=== PATIENT | male | born 1940 | race Caucasian/White ===

== ENCOUNTER 2016-10-06 07:51 | Emergency (ER) | payer MEDICARE, BC ==
[2016-10-06 09:02] LABS: CHLORIDE,CL 104 mmol/L (98-115); SODIUM,NA 141 mmol/L (136-145)
--- NOTE | 2016-10-06 19:09 | EDM.PDOC ---
ED HPI ALTERED MENTAL STATUS - General Chief Complaint: Neuro Symptoms/Deficits Stated Complaint: confusion Time Seen by Provider: 10/06/16 07:55 Source of Information: Reports: Family () History Limitations: Reports: Altered mental status - History of Present Illness INITIAL COMMENTS - FREE TEXT/NARRATIVE: A 76-year-old male presents to the emergency room with confusion and nonresponsiveness this a.m. EMS was dispatched this morning when patient's noticed her was not responsive and confused. He would open his eyes at times but would not communicate verbally. He was not ambulatory. She's not sure exactly at what time that this began. He does have multiple core morbidities which include prior heart disease, stroke, poorly controlled diabetes, DVTs, poor peripheral vascular disease. He was with a family yesterday and seemed to be doing well. He was able to do most of his care is independently living with his . Baseline Mental Status: Reports: alert/confused Symptom Onset Date: 10/06/16 Timing/Duration: Reports: Unsure Context: Reports: new/acute, recent infection (cellulitis of the left leg) - Related Data Allergies/ADRs: Allergies No Known Drug Allergies Allergy (Verified 10/06/16 08:49) Cannot Remember Past Medical History Cardiovascular History: Reports: CAD, High cholesterol, Hypertension, [place], Stents Musculoskeletal History: Reports: Arthritis Neurological History: Reports: CVA, TIA Endocrine/Metabolic History: Reports: Diabetes, type II Hematologic History: Reports: Anticoagulation therapy Immunologic History: Reports: None Social & Family History - Tobacco Use Smoking Status *Q: Current Status Unknown ED ROS GENERAL - Review of Systems Review Of Systems: Unable To Obtain - Physical Exam Exam: See Below Exam Limited By: Altered mental status General Appearance: obese Eye Exam: bilateral eye: PERRL Ears: normal external exam, normal TMs Nose: normal inspection, no blood Throat/Mouth: No airway compromise Head Exam: atraumatic, normocephalic Neck: normal inspection Respiratory/Chest: no respiratory distress Cardiovascular: regular rate, rhythm, no JVD GI/Abdominal: soft, non tender Neuro Exam (Abbreviated): confused, disoriented, unresponsive Back Exam: normal inspection Extremities: pedal edema, increased warmth (left lower extremity), redness ( left lower extremity), other (pronounced venous stasis changes with poor wound healing, cellulitis) Psychiatric: flat affect Skin Exam: Warm, Dry, Intact, Normal color EKG INTERPRETATION EKG Date: 10/06/16 Rhythm: NSR QRS: RBBB ST-T: depressed QT: normal Comparison: NA - no prior EKG EKG Interpretation Comments: Normal sinus rhythm Right bundle branch block Septal infarct age indeterminate Course - Vital Signs Last Recorded V/S: Last Vital Signs Temp 98.8 F 10/06/16 07:55 Pulse 98 10/06/16 08:50 Resp 18 10/06/16 08:50 BP 164/71 H 10/06/16 08:50 Pulse Ox 88 L 10/06/16 08:50 - Orders/Labs/Meds Orders: Active Orders 24 hr Category Date Time Status EKG Documentation Completion [RC] ASDIRECTED Care 10/06/16 08:06 Active Head wo Cont [CT] Stat Exams 10/06/16 08:04 Taken UA W/MICROSCOPIC [URIN] Stat Lab 10/06/16 08:04 Uncollected EKG 12 Lead [EK] Routine Ther 10/06/16 08:05 Ordered Labs: Laboratory Tests 10/06/16 10/06/16 10/06/16 Range/Units 07:57 08:25 08:25 WBC 6.7 (5.0-10.0) 10^3/uL RBC 4.33 L (4.50-6.00) 10^6/uL Hgb 13.1 (13.0-17.0) g/dL Hct 39.4 L (40.0-52.0) % MCV 90.9 (82.0-92.0) fL MCH 30.3 (27.0-31.0) pg MCHC 33.4 (32.0-36.0) g/dL RDW 12.9 (11.5-14.5) % Plt Count 247 (150-300) 10^3/uL MPV 6.8 L (7.4-10.4) fL Neut % (Auto) 83.2 H (50.0-70.0) % Lymph % (Auto) 7.8 L (20.0-40.0) % [place] % (Auto) 5.8 (2.0-8.0) % Eos % (Auto) 2.2 (1.0-3.0) % Baso % (Auto) 1.0 (0.0-1.0) % Neut # (Auto) 5.6 (2.5-7.0) 10^3/uL Lymph # (Auto) 0.5 L (1.0-4.0) 10^3/uL [place] # (Auto) 0.4 (0.1-0.8) 10^3/uL Eos # (Auto) 0.1 (0.1-0.3) 10^3/uL Baso # (Auto) 0.1 (0.0-0.1) 10^3/uL PT 18.1 H (8.9-11.4) SEC INR 1.7 H (0.9-1.1) APTT 34.6 H (20.8-31.2) SEC Sodium (136-145) mmol/L Potassium (3.3-5.3) mmol/L Chloride (98-115) mmol/L Carbon Dioxide (21.0-32.0) mmol/L BUN (6-25) mg/dL Creatinine (0.51-1.17) mg/dL Est Cr Clr Drug Dosing Estimated GFR (MDRD) mL/min Glucose (70-110) mg/dL POC Glucose 204 H (74-106) mg/dl Calcium (8.7-10.3) mg/dL Troponin I (0.00-0.070) ng/mL B-Natriuretic Peptide (0-100) pg/mL 10/06/16 Range/Units 08:25 WBC (5.0-10.0) 10^3/uL RBC (4.50-6.00) 10^6/uL Hgb (13.0-17.0) g/dL Hct (40.0-52.0) % MCV (82.0-92.0) fL MCH (27.0-31.0) pg MCHC (32.0-36.0) g/dL RDW (11.5-14.5) % Plt Count (150-300) 10^3/uL MPV (7.4-10.4) fL Neut % (Auto) (50.0-70.0) % Lymph % (Auto) (20.0-40.0) % [place] % (Auto) (2.0-8.0) % Eos % (Auto) (1.0-3.0) % Baso % (Auto) (0.0-1.0) % Neut # (Auto) (2.5-7.0) 10^3/uL Lymph # (Auto) (1.0-4.0) 10^3/uL [place] # (Auto) (0.1-0.8) 10^3/uL Eos # (Auto) (0.1-0.3) 10^3/uL Baso # (Auto) (0.0-0.1) 10^3/uL PT (8.9-11.4) SEC INR (0.9-1.1) APTT (20.8-31.2) SEC Sodium 141 (136-145) mmol/L Potassium 4.0 (3.3-5.3) mmol/L Chloride 104 (98-115) mmol/L Carbon Dioxide 26.3 (21.0-32.0) mmol/L BUN 22 (6-25) mg/dL Creatinine 1.07 (0.51-1.17) mg/dL Est Cr Clr Drug Dosing TNP Estimated GFR (MDRD) > 60 mL/min Glucose 201 H (70-110) mg/dL POC Glucose (74-106) mg/dl Calcium 8.6 L (8.7-10.3) mg/dL Troponin I 0.09 H* (0.00-0.070) ng/mL B-Natriuretic Peptide 56 (0-100) pg/mL - Radiology Interpretation Free Text/Narrative:: CT of the head without IV contrast Findings: An old inferior division of the right middle cerebral artery infarction is seen. No new infarction is identified Impression: No plain CT evidence of acute intracranial process - Re-Assessments/Exams Free Text/Narrative Re-Assessment/Exam: 10/06/16 19:33 Patient remains unresponsive with altered mental status changes unchanged. Departure - Departure Time of Disposition: 09:00 Disposition: DC/Tfer to Critical Access [facility] Condition: serious Clinical Impression: Confusion, Elevated troponin Altered mental status Qualifiers: Altered mental status type: unspecified Qualified Code(s): R41.82 - Altered mental status, unspecified Forms: ED Department Discharge - My Orders Last 24 Hours: My Active Orders 10/06/16 08:04 Head wo Cont [CT] Stat UA W/MICROSCOPIC [URIN] Stat 10/06/16 08:05 EKG 12 Lead [EK] Routine 10/06/16 08:06 EKG Documentation Completion [RC] ASDIRECTED - Assessment/Plan Last 24 Hours: My Active Orders 10/06/16 08:04 Head wo Cont [CT] Stat UA W/MICROSCOPIC [URIN] Stat 10/06/16 08:05 EKG 12 Lead [EK] Routine 10/06/16 08:06 EKG Documentation Completion [RC] ASDIRECTED Assessment:: Altered Mental status change Elevated troponin 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
== END 2016-10-06 09:00 ==
LOC: KA.ED 07:51
DX: R41.82 Altered mental status, unspecified (principal); R79.89 Other specified abnormal findings of blood chemistry; I25.10 Atherosclerotic heart disease of native coronary artery without angina pectoris; E78.00 Pure hypercholesterolemia, unspecified; I10 Essential (primary) hypertension; I25.2 Old myocardial infarction; E11.9 Type 2 diabetes mellitus without complications
CPT/HCPCS: 36415; 70450; 80048; 82962; 83880; 84484; 85025; 85610; 85730; 93005; 99285

== ENCOUNTER 2020-05-04 16:09 | Emergency (ER) | payer OTHER, MEDICARE, BC ==
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
--- NOTE | 2020-05-04 16:49 | CT ---
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
[2020-05-04 16:56] LABS: ANION GAP 13.3 mmol/L (5-15); CHLORIDE,CL 104 mmol/L (98-115); SODIUM,NA 141 mmol/L (136-145)
[2020-05-04 17:01] VITALS: BP 133/64; PULSE 63
== END 2020-05-04 17:38 ==
LOC: KA.ED 16:09
DX: R41.0 Disorientation, unspecified (principal); I25.10 Atherosclerotic heart disease of native coronary artery without angina pectoris; E78.00 Pure hypercholesterolemia, unspecified; I10 Essential (primary) hypertension; I25.2 Old myocardial infarction; M19.90 Unspecified osteoarthritis, unspecified site; E11.9 Type 2 diabetes mellitus without complications; Z79.84 Long term (current) use of oral hypoglycemic drugs; Z79.82 Long term (current) use of aspirin; Z79.01 Long term (current) use of anticoagulants; Z79.899 Other long term (current) drug therapy; Z95.5 Presence of coronary angioplasty implant and graft; Z86.73 Personal history of transient ischemic attack (TIA), and cerebral infarction without residual deficits
CPT/HCPCS: 70450; 80053; 84484; 85025; 85610; 99284; 99285-25

== ENCOUNTER 2020-05-09 10:21 | Inpatient (IN) | payer MEDICARE, BC ==
[2020-05-09] MEDS ORDERED: Warfarin 5 MG Tab PO SCH (18:00)
[2020-05-09] MEDS: Ferrous Sulfate 325 MG Tab PO SCH (18:18)
[2020-05-09] MEDS: metFORMIN 500 MG Tab PO SCH (18:18)
[2020-05-09] MEDS: atorvaSTATin 40 MG Tab PO SCH (20:37)
[2020-05-09] MEDS: levETIRAcetam 500 MG Tab PO SCH (20:37)
[2020-05-09] MEDS: Enoxaparin 100 MG/1 ML Syringe SUBCUT SCH (20:37)
[2020-05-10] MEDS: Lisinopril 5 MG Tab PO SCH (08:23)
[2020-05-10] MEDS: metFORMIN 500 MG Tab PO SCH ×2 (08:26→17:58)
[2020-05-10] MEDS: Aspirin 81 MG Tab.EC PO SCH (08:26)
[2020-05-10] MEDS: Calcium Citrate/Vitamin D3 315 MG-250 Unit Tab PO SCH (08:26)
[2020-05-10] MEDS: Multivitamins with Minerals/Iron/Folic Acid/Lycopene Tab PO SCH (08:26)
[2020-05-10] MEDS: Metoprolol Succinate 50 MG Tab.ER PO SCH (08:27)
[2020-05-10] MEDS: Citalopram 20 MG Tab PO SCH (08:27)
[2020-05-10] MEDS: Cyanocobalamin (Vitamin B12) 500 MCG Tab PO SCH (08:27)
[2020-05-10] MEDS: Ferrous Sulfate 325 MG Tab PO SCH ×2 (08:28→17:58)
[2020-05-10] MEDS: levETIRAcetam 500 MG Tab PO SCH ×2 (08:28→20:50)
[2020-05-10] MEDS: FENOFIBRATE MICRONIZED 134 MG PO SCH (08:29)
[2020-05-10] MEDS: Enoxaparin 100 MG/1 ML Syringe SUBCUT SCH ×2 (08:32→20:51)
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
[2020-05-10] MEDS: Ascorbic Acid 500 MG Tab PO SCH (17:58)
[2020-05-10] MEDS: Warfarin 5 MG Tab PO SCH (17:58)
[2020-05-10] MEDS: atorvaSTATin 40 MG Tab PO SCH (20:50)
[2020-05-11] MEDS: Cyanocobalamin (Vitamin B12) 500 MCG Tab PO SCH (08:29)
[2020-05-11] MEDS: levETIRAcetam 500 MG Tab PO SCH ×2 (08:29→21:13)
[2020-05-11] MEDS: Calcium Citrate/Vitamin D3 315 MG-250 Unit Tab PO SCH (08:29)
[2020-05-11] MEDS: Ferrous Sulfate 325 MG Tab PO SCH ×2 (08:29→17:44)
[2020-05-11] MEDS: FENOFIBRATE MICRONIZED 134 MG PO SCH (08:30)
[2020-05-11] MEDS: Citalopram 20 MG Tab PO SCH (08:30)
[2020-05-11] MEDS: Ascorbic Acid 500 MG Tab PO SCH ×2 (08:30→17:44)
[2020-05-11] MEDS: Metoprolol Succinate 50 MG Tab.ER PO SCH (08:30)
[2020-05-11] MEDS: Lisinopril 5 MG Tab PO SCH (08:30)
[2020-05-11] MEDS: Enoxaparin 100 MG/1 ML Syringe SUBCUT SCH ×2 (08:30→21:13)
[2020-05-11] MEDS: Aspirin 81 MG Tab.EC PO SCH (08:30)
[2020-05-11] MEDS: Multivitamins with Minerals/Iron/Folic Acid/Lycopene Tab PO SCH (08:30)
[2020-05-11] MEDS: metFORMIN 500 MG Tab PO SCH ×2 (08:32→17:44)
[2020-05-11 17:43] VITALS: PULSE 62
[2020-05-11] MEDS: Warfarin 5 MG Tab PO SCH (17:44)
[2020-05-11] MEDS: atorvaSTATin 40 MG Tab PO SCH (21:13)
[2020-05-12] MEDS: Cyanocobalamin (Vitamin B12) 500 MCG Tab PO SCH (08:09)
[2020-05-12] MEDS: metFORMIN 500 MG Tab PO SCH (08:10)
[2020-05-12] MEDS: Multivitamins with Minerals/Iron/Folic Acid/Lycopene Tab PO SCH (08:10)
[2020-05-12] MEDS: levETIRAcetam 500 MG Tab PO SCH (08:10)
[2020-05-12] MEDS: Citalopram 20 MG Tab PO SCH (08:10)
[2020-05-12] MEDS: Ferrous Sulfate 325 MG Tab PO SCH (08:10)
[2020-05-12] MEDS: Ascorbic Acid 500 MG Tab PO SCH (08:10)
[2020-05-12] MEDS: Calcium Citrate/Vitamin D3 315 MG-250 Unit Tab PO SCH (08:10)
[2020-05-12] MEDS: Aspirin 81 MG Tab.EC PO SCH (08:10)
[2020-05-12] MEDS: Lisinopril 5 MG Tab PO SCH (08:11)
[2020-05-12] MEDS: Metoprolol Succinate 50 MG Tab.ER PO SCH (08:11)
[2020-05-12] MEDS: Enoxaparin 100 MG/1 ML Syringe SUBCUT SCH (08:12)
[2020-05-12] MEDS: FENOFIBRATE MICRONIZED 134 MG PO SCH (08:27)
[2020-05-12 09:53] VITALS: BP 106/60
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
[2020-05-12] MEDS ORDERED: Warfarin 2 MG Tab PO SCH (18:00)
[2020-05-12] MEDS ORDERED: Warfarin 5 MG Tab PO SCH (18:00)
== END 2020-05-12 15:25 | disposition home or self-care (01) | DRG 101 ==
LOC: KA.MS 15:34
PROVIDERS: ADMIT Nurse Practitioner Family; ATTEND Nurse Practitioner Family
DX: G40.909 Epilepsy, unspecified, not intractable, without status epilepticus (principal); I82.409 Acute embolism and thrombosis of unspecified deep veins of unspecified lower extremity; R53.1 Weakness; E11.9 Type 2 diabetes mellitus without complications; D64.9 Anemia, unspecified; E78.5 Hyperlipidemia, unspecified; I10 Essential (primary) hypertension; Z20.828 Contact with and (suspected) exposure to other viral communicable diseases; F39 Unspecified mood [affective] disorder; H54.7 Unspecified visual loss; H91.90 Unspecified hearing loss, unspecified ear; M19.90 Unspecified osteoarthritis, unspecified site; E66.9 Obesity, unspecified; Z79.82 Long term (current) use of aspirin; Z79.899 Other long term (current) drug therapy; Z79.01 Long term (current) use of anticoagulants; Z79.84 Long term (current) use of oral hypoglycemic drugs; Z86.73 Personal history of transient ischemic attack (TIA), and cerebral infarction without residual deficits; Z68.29 Body mass index [BMI] 29.0-29.9, adult
CPT/HCPCS: 36416; 82962; 85610; 97110-GP; 97162-GP; A9270-GY; J1650

== ENCOUNTER 2021-02-20 17:55 | Inpatient (IN) | payer MEDICARE, BC ==
[2021-02-20] MEDS ORDERED: Sodium Chloride 0.9% 10 ML Syringe FLUSH PRN (18:13)
[2021-02-20] MEDS ORDERED: Sodium Chloride 0.9% 1,000 ML IV SCH ×2 (18:15→20:00)
--- NOTE | 2021-02-20 18:15 | EDM.PDOC ---
ED HPI GENERAL MEDICAL PROBLEM - General Chief Complaint: General Stated Complaint: GENERALIZED WEAKNESS Time Seen by Provider: 02/20/21 18:15 Source of Information: Reports: Patient, Family History Limitations: Reports: No Limitations - History of Present Illness INITIAL COMMENTS - FREE TEXT/NARRATIVE: 81 YO WM PRESENTS TO ER BY PRIVATE CAR WITH COMPLAINTS OF GENERALIZED WEAKNESS WITH POSSIBLE SEIZURE EARLIER TODAY. PT WITH HISTORY OF SEIZURES AND TAKING KEPPRA. PT REPORTS HE WAS ABLE TO AMBULATE WITH ASSISTANCE A SHORT DISTANCE TO EAT DINNER BUT AFTER HE WAS UNABLE TO STAND DUE TO WEAKNESS. PT REFUSED TO COME BY AMBULANCE INSTEAD COMING WITH FAMILY BY CAR. PT WAS A FULL ASSIST FROM CAR TO WHEELCHAIR AND WHEELCHAIR TO STRETCHER. PT WAS INCONTINENT OF BOTH URINE AND STO OL. PT DENIES FEVER/CHILLS, NO NAUSEA/VOMITING, NO CHEST PAIN OR SHORTNESS OF BREATH. PT DENIES SLURRED SPEECH, FACIAL DROOP OR HEADACHE/NECK PAIN. Onset: Unknown/Unsure Duration: Getting Worse Location: Reports: Generalized Severity: Moderate Improves with: Reports: Rest Worsens with: Reports: Movement Associated Symptoms: Reports: No Other Symptoms, Weakness - Related Data Allergies Allergy/AdvReac Type Severity Reaction Status Date / Time No Known Drug Allergies Allergy Cannot Verified 02/20/21 18:27 Remember Home Meds: Home Meds Ascorbate Calcium [Vitamin C] 500 mg PO BIDMEALS 05/04/20 [History] Aspirin [Halfprin] 81 mg PO DAILY 05/04/20 [History] Calcium Carbonate/Vitamin D3 [Calcium Carbonate/Vitamin D 600 MG-200 Unit] 1 tab PO DAILY 05/04/20 [History] Citalopram [Citalopram HBr] 20 mg PO DAILY 05/04/20 [History] Cyanocobalamin (Vitamin B-12) [Vitamin B-12] 1,000 mcg SL DAILY 05/04/20 [History] Fenofibrate,Micronized [Fenofibrate] 134 mg PO DAILY 05/04/20 [History] Ferrous Sulfate 325 mg PO BIDMEALS 05/04/20 [History] Metoprolol Succinate [Toprol XL 50mg] 50 mg PO DAILY 05/04/20 [History] Multivitamin 1 each PO DAILY 05/04/20 [History] atorvaSTATin [Lipitor] 20 mg PO BEDTIME 05/04/20 [History] lisinopriL [Prinivil] 5 mg PO DAILY 05/04/20 [History] metFORMIN [Glucophage] 500 mg PO BIDMEALS 05/04/20 [History] levETIRAcetam [Keppra] 1,000 mg PO BID 05/09/20 [History] Alendronate Sodium [Fosamax] 70 mg PO ASDIRECTED 02/20/21 [History] Phytonadione [Vitamin K] 100 mcg PO DAILY 02/20/21 [History] Warfarin [Coumadin] 5 mg PO DAILY@1800 02/20/21 [History] Past Medical History HEENT History: Reports: Hard of Hearing, Impaired Vision Cardiovascular History: Reports: Blood Clots/VTE/DVT, CAD, High Cholesterol, Hypertension, [place], Stents Musculoskeletal History: Reports: Arthritis Neurological History: Reports: CVA, Seizure, TIA Psychiatric History: Reports: Depression Endocrine/Metabolic History: Reports: Diabetes, Type II Hematologic History: Reports: Anemia, Anticoagulation Therapy, Iron Deficiency Immunologic History: Reports: None - Past Surgical History Head Surgeries/Procedures: Reports: None Cardiovascular Surgical History: Reports: Coronary Artery Bypass, Coronary Artery Stent Social & Family History - Family History Family Medical History: No Pertinent Family History - Caffeine Use Caffeine Use: Reports: Coffee ED ROS GENERAL - Review of Systems Review Of Systems: See Below Constitutional: Reports: Weakness HEENT: Reports: No Symptoms Respiratory: Reports: No Symptoms Cardiovascular: Reports: No Symptoms Endocrine: Reports: No Symptoms GI/Abdominal: Reports: No Symptoms : Reports: Incontinence Musculoskeletal: Reports: No Symptoms Skin: Reports: No Symptoms Neurological: Reports: Seizure, Difficulty Walking, Weakness, Gait Disturbance. Denies: Confusion, Dizziness, Headache, Numbness, Paresthesia, Syncope, Tingling, Tremors, Trouble Speaking, Change in Speech ED EXAM, GENERAL - Physical Exam Exam: See Below Exam Limited By: Physical Impairment General Appearance: Alert, WD/WN, No Apparent Distress Eye Exam: Bilateral Eye: EOMI, PERRL Throat/Mouth: Normal Inspection, Normal Lips, Normal Teeth, Normal Gums, Normal Oropharynx, Normal Voice, No Airway Compromise Head: Atraumatic, Normocephalic Neck: Normal Inspection, Supple, Non-Tender, Full Range of Motion Respiratory/Chest: No Respiratory Distress, Lungs Clear, Normal Breath Sounds, No Accessory Muscle Use, Chest Non-Tender Cardiovascular: Normal Peripheral Pulses, Regular Rate, Rhythm, No Edema, No Gallop, No JVD, No Rub GI/Abdominal: Normal Bowel Sounds, Soft, Non-Tender, No Organomegaly, No Distention, No Abnormal Bruit, No Mass Back Exam: Normal Inspection Extremities: Normal Range of Motion, Non-Tender, No Pedal Edema, Normal Capillary Refill Neurological: Alert, Oriented, CN II-XII Intact, Normal Cognition, Normal Reflexes, Abnormal Gait. No: Normal Gait Psychiatric: Normal Affect, Normal Mood Skin Exam: Warm, Dry, Intact, Normal Color, No Rash Lymphatic: No Adenopathy #1 Interpretation EKG Date: 02/20/21 Time: 18:37 Rhythm: NSR Rate (Beats/Min): 62 [place]: RAD-Right [place] Deviation P-Wave: Present QRS: Normal ST-T: Normal QT: Normal Comparison: NA - No Prior EKG Course - Vital Signs Last Recorded V/S: Last Vital Signs Temp 98.0 F 02/20/21 18:31 Pulse 64 02/20/21 19:49 Resp 20 02/20/21 19:49 BP 109/58 L 02/20/21 19:49 Pulse Ox 92 L 02/20/21 19:57 - Orders/Labs/Meds Orders: Active Orders 24 hr Category Date Time Status Patient Status Manage Transfer [TRANSFER] Routine ADT 02/20/21 19:50 Active Patient Status [ADT] Routine ADT 02/20/21 19:53 Active Cardiac Monitoring [RC] . DIRECTED Care 02/20/21 18:13 Active Oxygen Therapy [RC] PRN Care 02/20/21 19:53 Active Peripheral IV Care [RC] . DIRECTED Care 02/20/21 18:14 Active Up to Chair [RC] ASDIRECTED Care 02/20/21 19:53 Active VTE/DVT Education [RC] PER UNIT ROUTINE Care 02/20/21 19:53 Active Vital Signs [RC] Q4H Care 02/20/21 19:53 Active PT Evaluation and Treatment [CONS] Routine Cons 02/20/21 19:53 Active [place] [employer] Diet [DIET] Diet 02/20/21 Dinner Active A1C [GLYCOSYLATED HEMOGLOBIN,HGBA1C] [CHEM] AM Lab 02/21/21 05:11 Ordered CBC WITH AUTO DIFF [HEME] AM Lab 02/21/21 05:11 Ordered COMPREHENSIVE METABOLIC PN,CMP [CHEM] AM Lab 02/21/21 05:11 Ordered LACTIC ACID [CHEM] AM Lab 02/21/21 05:11 Ordered Sodium Chloride 0.9% [Normal Saline] 1,000 ml Med 02/20/21 18:15 Active IV ASDIRECTED Sodium Chloride 0.9% [Normal Saline] 1,000 ml Med 02/20/21 20:00 Active IV ASDIRECTED Sodium Chloride 0.9% [Saline Flush] Med 02/20/21 18:13 Active 10 ml FLUSH Q8HR PRN Peripheral IV Insertion Adult [OM.PC] Routine Oth 02/20/21 18:13 Ordered Resuscitation Status Routine Resus Stat 02/20/21 19:53 Ordered EKG 12 Lead [EK] Stat Ther 02/20/21 18:13 Ordered Medication Orders Sodium Chloride (Normal Saline) 1,000 mls @ 125 mls/hr IV ASDIRECTED OSIEL Last Admin: 02/20/21 18:35 Dose: 125 mls/hr Documented by: STEPHON Sodium Chloride (Normal Saline) 1,000 mls @ 100 mls/hr IV ASDIRECTED OSIEL Sodium Chloride (Sodium Chloride 0.9% 10 Ml Syringe) 10 ml FLUSH Q8HR PRN PRN Reason: keep vein open Last Admin: 02/20/21 18:36 Dose: 10 ml Documented by: STEPHON Labs: Laboratory Tests 02/20/21 02/20/21 02/20/21 Range/Units 18:13 18:13 18:13 WBC 5.90 (5.00-10.00) 10^3/uL RBC 4.64 (4.50-6.00) 10^6/uL Hgb 14.5 D (13.0-17.0) g/dL Hct 43.6 (40.0-52.0) % MCV 94.0 H (82.0-92.0) fL MCH 31.3 H (27.0-31.0) pg MCHC 33.3 (32.0-36.0) g/dL RDW 12.8 (11.5-14.5) % Plt Count 179 (150-400) 10^3/uL MPV 9.5 (7.4-10.4) fL Immature Gran % (Auto) 0.2 (0.0-5.0) % Neut % (Auto) 71.5 H (50.0-70.0) % Lymph % (Auto) 11.7 L (20.0-40.0) % [place] % (Auto) 10.0 H (2.0-8.0) % Eos % (Auto) 6.3 H (1.0-3.0) % Baso % (Auto) 0.3 (0.0-1.0) % Neut # (Auto) 4.22 (2.50-7.00) 10^3/uL Lymph # (Auto) 0.69 L (1.00-4.00) 10^3/uL [place] # (Auto) 0.59 (0.10-0.80) 10^3/uL Eos # (Auto) 0.37 H (0.10-0.30) 10^3/uL Baso # (Auto) 0.02 (0.00-0.10) 10^3/uL Immature Gran # (Auto) 0.01 (0.00-0.50) 10^3/uL PT 30.9 H D (9.2-11.2) SEC INR 3.1 H (0.9-1.1) APTT 41.0 H (22.8-31.4) SEC Sodium 140 (136-145) mmol/L Potassium 4.6 (3.5-5.1) mmol/L Chloride 103 (98-107) mmol/L Carbon Dioxide 26.8 (21.0-32.0) mmol/L Anion Gap 14.8 (5-15) mmol/L BUN 22 H (7-18) mg/dL Creatinine 1.20 H (0.51-1.17) mg/dL Est Cr Clr Drug Dosing 53.89 mL/min Estimated GFR (MDRD) 58 mL/min Glucose 147 H (70-140) mg/dL Lactic Acid (0.4-2.0) mmol/L Calcium 9.6 (8.7-10.3) mg/dL Total Bilirubin 0.3 (0.2-1.0) mg/dL AST 23 (15-37) U/L ALT 47 (14-63) U/L Alkaline Phosphatase 86 (46-116) U/L Total Protein 7.1 (6.4-8.2) g/dL Albumin 3.60 (3.40-5.00) g/dL Specimen Type Urine Color (YELLOW) Urine Appearance (CLEAR) Urine pH (5.0-9.0) Ur Specific [place] (1.005-1.030) Urine Protein (NEGATIVE) mg/dL Urine Glucose (UA) (NEGATIVE) mg/dL Urine Ketones (NEGATIVE) mg/dL Urine Occult Blood (NEGATIVE) Urine Nitrite (NEGATIVE) Urine Bilirubin (NEGATIVE) Urine Urobilinogen (0.2-1.0) E.U./dL Ur Leukocyte Esterase (NEGATIVE) Urine RBC (0-5) /HPF Urine WBC (0-5) /HPF Ur Epithelial Cells /LPF Urine Bacteria (NONE TO FEW) /HPF SARS CoV-2 RNA Rapid CARLOS A (NEGATIVE) 02/20/21 02/20/21 02/20/21 Range/Units 18:13 18:50 19:27 WBC (5.00-10.00) 10^3/uL RBC (4.50-6.00) 10^6/uL Hgb (13.0-17.0) g/dL Hct (40.0-52.0) % MCV (82.0-92.0) fL MCH (27.0-31.0) pg MCHC (32.0-36.0) g/dL RDW (11.5-14.5) % Plt Count (150-400) 10^3/uL MPV (7.4-10.4) fL Immature Gran % (Auto) (0.0-5.0) % Neut % (Auto) (50.0-70.0) % Lymph % (Auto) (20.0-40.0) % [place] % (Auto) (2.0-8.0) % Eos % (Auto) (1.0-3.0) % Baso % (Auto) (0.0-1.0) % Neut # (Auto) (2.50-7.00) 10^3/uL Lymph # (Auto) (1.00-4.00) 10^3/uL [place] # (Auto) (0.10-0.80) 10^3/uL Eos # (Auto) (0.10-0.30) 10^3/uL Baso # (Auto) (0.00-0.10) 10^3/uL Immature Gran # (Auto) (0.00-0.50) 10^3/uL PT (9.2-11.2) SEC INR (0.9-1.1) APTT (22.8-31.4) SEC Sodium (136-145) mmol/L Potassium (3.5-5.1) mmol/L Chloride (98-107) mmol/L Carbon Dioxide (21.0-32.0) mmol/L Anion Gap (5-15) mmol/L BUN (7-18) mg/dL Creatinine (0.51-1.17) mg/dL Est Cr Clr Drug Dosing mL/min Estimated GFR (MDRD) mL/min Glucose (70-140) mg/dL Lactic Acid 2.6 H (0.4-2.0) mmol/L Calcium (8.7-10.3) mg/dL Total Bilirubin (0.2-1.0) mg/dL AST (15-37) U/L ALT (14-63) U/L Alkaline Phosphatase (46-116) U/L Total Protein (6.4-8.2) g/dL Albumin (3.40-5.00) g/dL Specimen Type [place] Urine Color Yellow (YELLOW) Urine Appearance Clear (CLEAR) Urine pH 6.0 (5.0-9.0) Ur Specific [place] 1.025 (1.005-1.030) Urine Protein Trace H (NEGATIVE) mg/dL Urine Glucose (UA) 500 H (NEGATIVE) mg/dL Urine Ketones Negative (NEGATIVE) mg/dL Urine Occult Blood Negative (NEGATIVE) Urine Nitrite Negative (NEGATIVE) Urine Bilirubin Negative (NEGATIVE) Urine Urobilinogen 0.2 (0.2-1.0) E.U./dL Ur Leukocyte Esterase Negative (NEGATIVE) Urine RBC 0-5 (0-5) /HPF Urine WBC Not seen (0-5) /HPF Ur Epithelial Cells Occasional /LPF Urine Bacteria Not seen (NONE TO FEW) /HPF SARS CoV-2 RNA Rapid CARLOS A Negative (NEGATIVE) Meds: Medications Generic Name Dose Route Start Last Admin Trade Name Freq PRN Reason Stop Dose Admin Sodium Chloride 1,000 mls @ 125 mls/hr 02/20/21 18:15 02/20/21 18:35 Normal Saline IV 125 mls/hr ASDIRECTED OSIEL Administration Sodium Chloride 1,000 mls @ 100 mls/hr 02/20/21 20:00 Normal Saline IV ASDIRECTED [facility] Sodium Chloride 10 ml 02/20/21 18:13 02/20/21 18:36 Sodium Chloride 0.9% 10 Ml Syringe FLUSH 10 ml Q8HR PRN Administration keep vein open - Radiology Interpretation Free Text/Narrative:: CXR-NAD CT HEAD- NAD Departure - Departure Time of Disposition: 20:01 Disposition: Admitted As Inpatient 67 Condition: Poor Clinical Impression: Generalized weakness, Physical deconditioning, Dehydration - Discharge Information Referrals: Quintin Yanez MD [Primary Care Provider] - Forms: ED Department Discharge Sepsis Event Note (ED) - Focused Exam Vital Signs: Vital Signs Temp Pulse Resp BP Pulse Ox Pulse Ox 02/20/21 19:57 92 L 02/20/21 19:49 64 20 109/58 L 96 02/20/21 19:28 58 L 18 121/59 L 93 L 02/20/21 18:41 63 20 129/66 92 L 02/20/21 18:31 98.0 F 64 16 129/65 93 L - My Orders Last 24 Hours: My Active Orders 02/20/21 Dinner [place] [employer] Diet [DIET] 02/20/21 18:13 Cardiac Monitoring [RC] . DIRECTED Sodium Chloride 0.9% [Saline Flush] 10 ml FLUSH Q8HR PRN Peripheral IV Insertion Adult [OM.PC] Routine EKG 12 Lead [EK] Stat 02/20/21 18:14 Peripheral IV Care [RC] . DIRECTED 02/20/21 18:15 Sodium Chloride 0.9% [Normal Saline] 1,000 ml IV ASDIRECTED 02/20/21 19:50 Patient Status Manage Transfer [TRANSFER] Routine 02/20/21 19:53 Patient Status [ADT] Routine Oxygen Therapy [RC] PRN Up to Chair [RC] ASDIRECTED VTE/DVT Education [RC] PER UNIT ROUTINE Vital Signs [RC] Q4H PT Evaluation and Treatment [CONS] Routine Resuscitation Status Routine 02/20/21 20:00 Sodium Chloride 0.9% [Normal Saline] 1,000 ml IV ASDIRECTED 02/21/21 05:11 A1C [GLYCOSYLATED HEMOGLOBIN,HGBA1C] [CHEM] AM CBC WITH AUTO DIFF [HEME] AM COMPREHENSIVE METABOLIC PN,CMP [CHEM] AM LACTIC ACID [CHEM] AM - Assessment/Plan Last 24 Hours: My Active Orders 02/20/21 Dinner [place] [employer] Diet [DIET] 02/20/21 18:13 Cardiac Monitoring [RC] . DIRECTED Sodium Chloride 0.9% [Saline Flush] 10 ml FLUSH Q8HR PRN Peripheral IV Insertion Adult [OM.PC] Routine EKG 12 Lead [EK] Stat 02/20/21 18:14 Peripheral IV Care [RC] . DIRECTED 02/20/21 18:15 Sodium Chloride 0.9% [Normal Saline] 1,000 ml IV ASDIRECTED 02/20/21 19:50 Patient Status Manage Transfer [TRANSFER] Routine 02/20/21 19:53 Patient Status [ADT] Routine Oxygen Therapy [RC] PRN Up to Chair [RC] ASDIRECTED VTE/DVT Education [RC] PER UNIT ROUTINE Vital Signs [RC] Q4H PT Evaluation and Treatment [CONS] Routine Resuscitation Status Routine 02/20/21 20:00 Sodium Chloride 0.9% [Normal Saline] 1,000 ml IV ASDIRECTED 02/21/21 05:11 A1C [GLYCOSYLATED HEMOGLOBIN,HGBA1C] [CHEM] AM CBC WITH AUTO DIFF [HEME] AM COMPREHENSIVE METABOLIC PN,CMP [CHEM] AM LACTIC ACID [CHEM] AM Assessment:: 1. SEVERE DECONDITIONING 2. POSSIBLE SEIZURE-RESOLVED EARLIER TODAY 3. DEHYDRATION 4. GENERALIZED WEAKNESS Plan: 1. ADMIT TO MEDICINE-DR ESTRADA YANEZ-ACCEPTED AT 1999 (ALL ADMISSSION ORDERS PER DR ESTRADA YANEZ) 2. NORMAL SALINE @100CC/HR 3. PHYSICAL THERAPY TO EVALUATE AND TREAT 4. CBC/CMP/LACTIC ACID/HGBA1C IN AM 5. SUPPORTIVE CARE
--- NOTE | 2021-02-20 18:53 | CT ---
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 There is no hyperdense middle cerebral artery sign. IMPRESSION: NO CHANGE SINCE LAST EXAM Raúl Caballero MD 02/20/21 0236 Thank you for allowing us to participate in the care of your patient.
--- NOTE | 2021-02-20 18:57 | CR ---
[id number] RAD/RAD Chest PA or AP 1V EXAM: SINGLE VIEW CHEST. INDICATION: WEAKNESS COMPARISON: CORRELATION IS MADE WITH MARCH 12, 2008 FINDINGS: The lungs are clear. 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
[2021-02-20 19:14] LABS: ANION GAP 14.8 mmol/L (5-15)
[2021-02-20] MEDS ORDERED: Non-Formulary Medication 1 Each (Alendronate Sodium [Fosamax] 70 MG Tablet) PO SCH (21:00)
[2021-02-20] MEDS ORDERED: atorvaSTATin 40 MG Tab PO SCH (21:00)
[2021-02-20] MEDS: levETIRAcetam 500 MG Tab PO SCH (21:57)
[2021-02-21] MEDS ORDERED: Ferrous Sulfate 325 MG Tab PO SCH (08:00)
[2021-02-21] MEDS ORDERED: metFORMIN 500 MG Tab PO SCH (08:00)
[2021-02-21] MEDS ORDERED: Ascorbic Acid 500 MG Tab PO SCH (08:00)
[2021-02-21] MEDS: levETIRAcetam 500 MG Tab PO SCH (08:14)
[2021-02-21 08:32] LABS: ANION GAP 12.4 mmol/L (5-15); CHLORIDE,CL 105 mmol/L (98-107); SODIUM,NA 141 mmol/L (136-145)
[2021-02-21 08:44] LABS: HEMOGLOBIN A1C 8.4 % (4.3-5.7)
[2021-02-21] MEDS ORDERED: Calcium Citrate/Vitamin D3 315 MG-250 Unit Tab PO SCH (09:00)
[2021-02-21] MEDS ORDERED: Metoprolol Succinate 50 MG Tab.ER PO SCH (09:00)
[2021-02-21] MEDS ORDERED: Aspirin 81 MG Tab.EC PO SCH (09:00)
[2021-02-21] MEDS ORDERED: Non-Formulary Medication 1 Each (Fenofibrate,Micronized [Fenofibrate] 134 MG Cap) PO SCH (09:00)
[2021-02-21] MEDS ORDERED: Citalopram 20 MG Tab PO SCH (09:00)
[2021-02-21] MEDS ORDERED: Cyanocobalamin (Vitamin B12) 500 MCG Tab PO SCH (09:00)
[2021-02-21] MEDS ORDERED: Phytonadione 100 MCG Tab PO SCH (09:00)
[2021-02-21] MEDS ORDERED: CALCIUM CARBONATE PO SCH (09:00)
[2021-02-21] MEDS ORDERED: VITAMIN D3 PO SCH (09:00)
[2021-02-21] MEDS ORDERED: Lisinopril 10 MG Tab PO SCH (09:00)
[2021-02-21] MEDS ORDERED: Multivitamins with Minerals/Iron/Folic Acid/Lycopene Tab PO SCH (09:00)
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
--- NOTE | 2021-02-21 11:29 | CT ---
[id number] CT/CT Head Stroke Protocol EXAM: CT Head Stroke Protocol CLINICAL DATA: STROKE SYMPTOMS. COMPARISON STUDY: February 21, 2020. FINDINGS: Large area of encephalomalacia in the right cerebral hemisphere in the posterior MCA distribution. No intracranial hemorrhage or extra-axial fluid collection. No hydrocephalus. No CT evidence of acute large vessel ischemia. Findings are superimposed on chronic small vessel disease in both cerebral hemispheres, unchanged from the prior examination. IMPRESSION: No acute intracranial findings. Chronic findings are described above. Results relayed to Estela Ann at time of dictation. Oliver Rodríguez MD 02/21/21 1128 Thank you for allowing us to participate in the care of your patient.
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
[2021-02-21 12:41] VITALS: BP 146/66; PULSE 61
[2021-02-21] MEDS ORDERED: Warfarin 5 MG Tab PO SCH (18:00)
== END 2021-02-21 12:00 | DRG 65 ==
LOC: KA.ED 17:55 → KA.MS 19:50
PROVIDERS: ADMIT Physician Assistant Medical; ATTEND Family Medicine
DX: I63.9 Cerebral infarction, unspecified (principal); G81.91 Hemiplegia, unspecified affecting right dominant side; R56.9 Unspecified convulsions; E86.0 Dehydration; R62.7 Adult failure to thrive; H91.90 Unspecified hearing loss, unspecified ear; H54.7 Unspecified visual loss; I25.10 Atherosclerotic heart disease of native coronary artery without angina pectoris; E78.00 Pure hypercholesterolemia, unspecified; G40.909 Epilepsy, unspecified, not intractable, without status epilepticus; I10 Essential (primary) hypertension; D64.9 Anemia, unspecified; E61.1 Iron deficiency; M19.90 Unspecified osteoarthritis, unspecified site; F32.9 Major depressive disorder, single episode, unspecified; E11.9 Type 2 diabetes mellitus without complications; E66.9 Obesity, unspecified; D50.9 Iron deficiency anemia, unspecified; Z96.659 Presence of unspecified artificial knee joint; E78.5 Hyperlipidemia, unspecified; G47.33 Obstructive sleep apnea (adult) (pediatric); M35.3 Polymyalgia rheumatica; M81.0 Age-related osteoporosis without current pathological fracture; M54.5 Low back pain; R29.810 Facial weakness; R47.81 Slurred speech; I25.2 Old myocardial infarction; Z68.30 Body mass index [BMI] 30.0-30.9, adult; Z86.718 Personal history of other venous thrombosis and embolism; Z95.5 Presence of coronary angioplasty implant and graft; Z79.01 Long term (current) use of anticoagulants; Z95.1 Presence of aortocoronary bypass graft; Z79.84 Long term (current) use of oral hypoglycemic drugs; Z79.82 Long term (current) use of aspirin; Z79.899 Other long term (current) drug therapy; R32 Unspecified urinary incontinence; Z20.822 Contact with and (suspected) exposure to COVID-19
CPT/HCPCS: 36415; 70450; 71045; 80053; 81001; 83036; 83605; 85025; 85610; 85730; 93005; 99285-25; A9270-GY; J7030; U0002

== ENCOUNTER 2021-08-07 08:28 | Emergency (ER) | payer MEDICARE, BC ==
[2021-08-07 08:55] VITALS: BP 150/73; PULSE 64
[2021-08-07 09:22] LABS: ANION GAP 13.3 mmol/L (5-15); CHLORIDE,CL 100 mmol/L (98-107); SODIUM,NA 138 mmol/L (136-145)
[2021-08-07 10:21] LABS: PTT,PARTIAL THROMBOPLSTIN TIME 44.7 SEC (22.8-31.4)
== END 2021-08-07 11:30 ==
LOC: KA.ED 08:28
DX: R53.83 Other fatigue (principal); R41.0 Disorientation, unspecified
CPT/HCPCS: 36415; 70450; 71045; 80053; 80177; 81003; 84484; 85025; 85610; 85730; 93005; 93010; 99284; 99285-25

== ENCOUNTER 2022-04-01 13:25 | Inpatient (IN) | payer MEDICARE, BC ==
[2022-04-01] MEDS ORDERED: Sodium Chloride 0.9% 1,000 ML IV SCH (14:30)
[2022-04-01 15:49] LABS: ANION GAP 13.9 mmol/L (5-15)
[2022-04-01] MEDS ORDERED: Glucagon,Human Recombinant 1 MG Vial IM PRN (16:10)
[2022-04-01] MEDS ORDERED: 50% Dextrose in Water 50 ML Syringe IVPUSH PRN (16:10)
[2022-04-01] MEDS: Insulin Lispro 100 Unit/ML 3 ML KwikPen SUBCUT SCH ×3 (16:24→23:47)
[2022-04-01] MEDS: Dextrose 5% in Water 1,000 ML IV SCH ×2 (16:24→23:53)
[2022-04-01 16:29] LABS: O2 DELIVERY DEVICE NASAL CANNULA
[2022-04-01 16:30] LABS: PCO2 ARTERIAL 40 mmHG (35-48); PO2 ARTERIAL 114 mmHG (83-108)
[2022-04-01 16:31] LABS: BASE EXCESS ARTERIAL 3 mmol/L ((-2)-(+3)); BICARBONATE,ARTERIAL 27 mmol/L (21-28); O2 SATURATION ARTERIAL 98.6 %
[2022-04-01 19:25] LABS: ANION GAP 12.6 mmol/L (5-15)
[2022-04-01] MEDS: levETIRAcetam 500 MG Tab PO SCH (20:27)
[2022-04-01] MEDS: Ferrous Sulfate 325 MG Tab PO SCH (20:27)
[2022-04-01] MEDS ORDERED: atorvaSTATin 40 MG Tab PO SCH (21:00)
[2022-04-01] MEDS ORDERED: Citalopram 20 MG Tab PO SCH (21:00)
[2022-04-01 23:22] LABS: ANION GAP 11.4 mmol/L (5-15)
[2022-04-02 04:25] LABS: ANION GAP 10.3 mmol/L (5-15)
[2022-04-02] MEDS: Insulin Lispro 100 Unit/ML 3 ML KwikPen SUBCUT SCH ×2 (04:30→08:40)
[2022-04-02] MEDS: Dextrose 5% in Water 1,000 ML IV SCH (07:28)
[2022-04-02 07:58] LABS: ANION GAP 12.4 mmol/L (5-15)
[2022-04-02] MEDS ORDERED: Phytonadione 100 MCG Tab PO SCH (09:00)
[2022-04-02] MEDS ORDERED: Folic Acid 1 MG Tab PO SCH (09:00)
[2022-04-02] MEDS ORDERED: Aspirin 81 MG Tab.EC PO SCH (09:00)
[2022-04-02] MEDS ORDERED: Metoprolol Succinate 50 MG Tab.ER PO SCH (09:00)
[2022-04-02] MEDS ORDERED: Lisinopril 10 MG Tab PO SCH (09:00)
[2022-04-02] MEDS ORDERED: Docusate Sodium 100 MG Cap PO SCH (09:00)
[2022-04-02] MEDS ORDERED: Cyanocobalamin (Vitamin B12) 500 MCG Tab PO SCH (09:00)
[2022-04-02] MEDS: levETIRAcetam 500 MG Tab PO SCH (09:36)
[2022-04-02 10:39] LABS: ANION GAP 10.9 mmol/L (5-15)
[2022-04-02] MEDS ORDERED: levETIRAcetam in NaCl (iso-os) 1,000 MG in Premix Bag 1 BAG IV ONE ×2 (11:15)
[2022-04-02] MEDS: Ferrous Sulfate 325 MG Tab PO SCH (11:30)
[2022-04-02 12:00] VITALS: BP 121/62; PULSE 81
== END 2022-04-02 12:00 | DRG 683 ==
LOC: KA.MS 13:25
PROVIDERS: ADMIT Family Medicine; ATTEND Family Medicine
DX: N17.9 Acute kidney failure, unspecified (principal); E87.0 Hyperosmolality and hypernatremia; F33.0 Major depressive disorder, recurrent, mild; E11.65 Type 2 diabetes mellitus with hyperglycemia; G40.909 Epilepsy, unspecified, not intractable, without status epilepticus; I25.10 Atherosclerotic heart disease of native coronary artery without angina pectoris; I10 Essential (primary) hypertension; E78.2 Mixed hyperlipidemia; E66.9 Obesity, unspecified; E53.9 Vitamin B deficiency, unspecified; M85.80 Other specified disorders of bone density and structure, unspecified site; G89.29 Other chronic pain; M54.59 Other low back pain; Z79.82 Long term (current) use of aspirin; Z79.899 Other long term (current) drug therapy; Z95.1 Presence of aortocoronary bypass graft; Z86.718 Personal history of other venous thrombosis and embolism; Z79.84 Long term (current) use of oral hypoglycemic drugs; Z79.01 Long term (current) use of anticoagulants; Z86.73 Personal history of transient ischemic attack (TIA), and cerebral infarction without residual deficits; G47.33 Obstructive sleep apnea (adult) (pediatric)
CPT/HCPCS: 36415; 36600; 51702; 80048; 80053; 82803; 82947; 83735; 85025; 85610; A9270-GY; J1815-GY; J1953; J7060

== ENCOUNTER 2023-10-20 16:34 | Inpatient (IN) | payer MEDICARE, MEDICAID ==
[2023-10-20] MEDS ORDERED: Sodium Chloride 0.9% 10 ML Syringe FLUSH PRN (16:35)
[2023-10-20 17:07] LABS: BASOPHILS ABSOLUTE AUTO 0.01 10^3/uL (0.00-0.10); BASOPHILS PERCENT AUTO 0.2 % (0.0-1.0); EOSINOPHILS ABSOLUTE AUTO 0.26 10^3/uL (0.10-0.30); EOSINOPHILS PERCENT AUTO 4.2 % (1.0-3.0); HEMATOCRIT 36.6 % (40.0-52.0); HEMOGLOBIN 11.5 g/dL (13.0-17.0); IMMATURE GRAN ABSOLUTE AUTO 0.01 10^3/uL (0.00-0.50); IMMATURE GRAN PERCENT AUTO 0.2 % (0.0-5.0); LYMPHOCYTES ABSOLUTE AUTO 0.75 10^3/uL (1.00-4.00); LYMPHOCYTES PERCENT AUTO 12.2 % (20.0-40.0); MEAN CORPUSCULAR HEMOGLOBIN 29.1 pg (27.0-31.0); MEAN CORPUSCULAR HGB CONC 31.4 g/dL (32.0-36.0); MEAN CORPUSCULAR VOLUME 92.7 fL (82.0-92.0); MEAN PLATELET VOLUME 8.9 fL (7.4-10.4); MONOCYTES ABSOLUTE AUTO 0.51 10^3/uL (0.10-0.80); MONOCYTES PERCENT AUTO 8.3 % (2.0-8.0); NEUTROPHILS ABSOLUTE AUTO 4.59 10^3/uL (2.50-7.00); NEUTROPHILS PERCENT AUTO 74.9 % (50.0-70.0); PLATELET COUNT,PLT 252 10^3/uL (150-400); RED BLOOD CELL COUNT 3.95 10^6/uL (4.50-6.00); RED CELL DISTRIBUTION WIDTH 16.7 % (11.5-14.5); WHITE BLOOD CELL COUNT,WBC 6.13 10^3/uL (5.00-10.00)
[2023-10-20 17:26] LABS: ALBUMIN 2.75 g/dL (3.40-5.00); ANION GAP 10.3 mmol/L (5-15); BILIRUBIN TOTAL 0.3 mg/dL (0.2-1.0); CALCIUM 9.9 mg/dL (8.7-10.3); CARBON DIOXIDE,CO2 30.8 mmol/L (21.0-32.0); CREATININE 1.47 mg/dL (0.51-1.17); EST CRCL DRUG DOSING (CG) 33.7 mL/min; POTASSIUM,K 4.1 mmol/L (3.5-5.1); PROTEIN TOTAL,TP 7.4 g/dL (6.4-8.2)
[2023-10-20 17:44] LABS: INR 2.1 (0.9-1.1); PROTHROMBIN TIME 21.5 SEC (9.3-12.2)
[2023-10-20 17:54] LABS: PTT,PARTIAL THROMBOPLSTIN TIME 39.2 SEC (23.3-34.9)
[2023-10-20 18:04] LABS: INFLUENZA A NAA NEGATIVE (NEGATIVE); INFLUENZA B NAA NEGATIVE (NEGATIVE); RESPIRATORY SYNCYTIAL VIR NAA NEGATIVE (NEGATIVE)
[2023-10-20 18:07] LABS: CORONAVIRUS COVID-19 NAA NEGATIVE (NEGATIVE)
[2023-10-20] MEDS: Sodium Chloride 0.9% 1,000 ML IV ONE (18:14)
[2023-10-20] MEDS: Cefepime 2 GM Vial IVPUSH ONE (18:15)
[2023-10-20] MEDS: Sodium Chloride 0.9% 100 ML IV SCH (18:52)
[2023-10-20] MEDS: Iopamidol 755 Mg/ML 100 ML Bottle IV ONE (18:52)
[2023-10-20] MEDS ORDERED: Acetaminophen 325 MG Tab PO PRN (22:17)
[2023-10-20] MEDS ORDERED: Sodium Chloride 0.9% 1,000 ML IV SCH (22:20)
[2023-10-20] MEDS: Sodium Chloride 0.9% 1,000 ML ONE (23:34)
[2023-10-20] MEDS: Sodium Chloride 0.9% 1,000 ML IV SCH (23:44)
[2023-10-21] MEDS: Warfarin 5 MG Tab PO SCH ×2 (00:34→17:58)
[2023-10-21] MEDS: Warfarin 2.5 MG Tab PO SCH (00:35)
[2023-10-21] MEDS: Citalopram 20 MG Tab PO SCH (00:35)
[2023-10-21] MEDS: Cefepime 2 GM in Sodium Chloride 0.9% 50 ML IV SCH (01:59)
[2023-10-21 07:47] LABS: BASOPHILS ABSOLUTE AUTO 0.02 10^3/uL (0.00-0.10); BASOPHILS PERCENT AUTO 0.4 % (0.0-1.0); EOSINOPHILS ABSOLUTE AUTO 0.48 10^3/uL (0.10-0.30); EOSINOPHILS PERCENT AUTO 10.7 % (1.0-3.0); HEMATOCRIT 30.8 % (40.0-52.0); HEMOGLOBIN 9.8 g/dL (13.0-17.0); IMMATURE GRAN ABSOLUTE AUTO 0.01 10^3/uL (0.00-0.50); IMMATURE GRAN PERCENT AUTO 0.2 % (0.0-5.0); LYMPHOCYTES ABSOLUTE AUTO 0.68 10^3/uL (1.00-4.00); LYMPHOCYTES PERCENT AUTO 15.2 % (20.0-40.0); MEAN CORPUSCULAR HEMOGLOBIN 29.6 pg (27.0-31.0); MEAN CORPUSCULAR HGB CONC 31.8 g/dL (32.0-36.0); MEAN CORPUSCULAR VOLUME 93.1 fL (82.0-92.0); MONOCYTES ABSOLUTE AUTO 0.43 10^3/uL (0.10-0.80); MONOCYTES PERCENT AUTO 9.6 % (2.0-8.0); NEUTROPHILS ABSOLUTE AUTO 2.86 10^3/uL (2.50-7.00); NEUTROPHILS PERCENT AUTO 63.9 % (50.0-70.0); PLATELET COUNT,PLT 198 10^3/uL (150-400); RED BLOOD CELL COUNT 3.31 10^6/uL (4.50-6.00); RED CELL DISTRIBUTION WIDTH 16.5 % (11.5-14.5); WHITE BLOOD CELL COUNT,WBC 4.48 10^3/uL (5.00-10.00)
[2023-10-21 08:02] LABS: PROTHROMBIN TIME 20.6 SEC (9.3-12.2)
[2023-10-21 08:03] LABS: ANION GAP 10.4 mmol/L (5-15); CALCIUM 8.4 mg/dL (8.7-10.3); CARBON DIOXIDE,CO2 29.6 mmol/L (21.0-32.0); CREATININE 1.28 mg/dL (0.51-1.17); EST CRCL DRUG DOSING (CG) 38.65 mL/min
[2023-10-21] MEDS: Folic Acid 1 MG Tab PO SCH (09:02)
[2023-10-21] MEDS: levETIRAcetam 500 MG Tab PO SCH (09:03)
[2023-10-21] MEDS: Cyanocobalamin (Vitamin B12) 500 MCG Tab PO SCH (09:04)
[2023-10-21] MEDS: Phytonadione 100 MCG Tab PO SCH (09:04)
[2023-10-21] MEDS: Aspirin 81 MG Tab.EC PO SCH (09:04)
[2023-10-21] MEDS: Sennosides/Docusate Sodium 50-8.6 MG Tab PO SCH (09:04)
[2023-10-21] MEDS: Ferrous Sulfate 325 MG Tab PO SCH (09:04)
[2023-10-21] MEDS: Metoprolol Succinate 50 MG Tab.ER PO SCH (09:04)
[2023-10-21] MEDS: Doxycycline Monohydrate 100 MG Cap PO SCH (13:52)
[2023-10-21] MEDS: atorvaSTATin 40 MG Tab PO SCH (20:24)
[2023-10-22 06:44] LABS: HEMATOCRIT 32.7 % (40.0-52.0); HEMOGLOBIN 10.3 g/dL (13.0-17.0); MEAN CORPUSCULAR HEMOGLOBIN 29.1 pg (27.0-31.0); MEAN CORPUSCULAR HGB CONC 31.5 g/dL (32.0-36.0); MEAN CORPUSCULAR VOLUME 92.4 fL (82.0-92.0); MEAN PLATELET VOLUME 8.9 fL (7.4-10.4); PLATELET COUNT,PLT 211 10^3/uL (150-400); RED BLOOD CELL COUNT 3.54 10^6/uL (4.50-6.00); RED CELL DISTRIBUTION WIDTH 16.1 % (11.5-14.5); WHITE BLOOD CELL COUNT,WBC 4.89 10^3/uL (5.00-10.00)
[2023-10-22 06:59] LABS: ALBUMIN 2.24 g/dL (3.40-5.00); ANION GAP 10.3 mmol/L (5-15); BILIRUBIN TOTAL 0.2 mg/dL (0.2-1.0); CALCIUM 8.5 mg/dL (8.7-10.3); CARBON DIOXIDE,CO2 29.8 mmol/L (21.0-32.0); CREATININE 1.07 mg/dL (0.51-1.17); EST CRCL DRUG DOSING (CG) 46.23 mL/min; POTASSIUM,K 4.1 mmol/L (3.5-5.1); PROTEIN TOTAL,TP 6.5 g/dL (6.4-8.2)
[2023-10-22 07:03] LABS: INR 1.8 (0.9-1.1); PROTHROMBIN TIME 18.5 SEC (9.3-12.2)
[2023-10-22] MEDS: Furosemide 40 MG/4 ML VIAL IVPUSH ONE (10:07)
[2023-10-22] MEDS: Nystatin Topical Powder 15 GM Bottle TOP PRN (10:18)
[2023-10-22] MEDS: Warfarin 2.5 MG Tab PO ONE (18:16)
[2023-10-23 07:26] LABS: HEMATOCRIT 33.3 % (40.0-52.0); HEMOGLOBIN 10.7 g/dL (13.0-17.0); MEAN CORPUSCULAR HEMOGLOBIN 29.6 pg (27.0-31.0); MEAN CORPUSCULAR HGB CONC 32.1 g/dL (32.0-36.0); MEAN CORPUSCULAR VOLUME 92.2 fL (82.0-92.0); MEAN PLATELET VOLUME 8.6 fL (7.4-10.4); PLATELET COUNT,PLT 216 10^3/uL (150-400); RED BLOOD CELL COUNT 3.61 10^6/uL (4.50-6.00); RED CELL DISTRIBUTION WIDTH 15.8 % (11.5-14.5); WHITE BLOOD CELL COUNT,WBC 4.61 10^3/uL (5.00-10.00)
[2023-10-23 07:46] LABS: ALBUMIN 2.24 g/dL (3.40-5.00); ANION GAP 13.2 mmol/L (5-15); BILIRUBIN TOTAL 0.3 mg/dL (0.2-1.0); CALCIUM 8.6 mg/dL (8.7-10.3); CARBON DIOXIDE,CO2 29.8 mmol/L (21.0-32.0); CREATININE 1.13 mg/dL (0.51-1.17); EST CRCL DRUG DOSING (CG) 43.78 mL/min; PROTEIN TOTAL,TP 6.7 g/dL (6.4-8.2)
[2023-10-23 07:47] LABS: INR 1.8 (0.9-1.1); PROTHROMBIN TIME 18.2 SEC (9.3-12.2)
[2023-10-23] MEDS: Furosemide 40 MG/4 ML VIAL IVPUSH ONE (12:44)
[2023-10-23] MEDS: Polyethylene Glycol 3350 Powder 17 GM Packet PO PRN (13:30)
[2023-10-24] MEDS: Bisacodyl 10 MG Supp RECTAL PRN (06:12)
[2023-10-24 07:11] LABS: BASOPHILS ABSOLUTE AUTO 0.01 10^3/uL (0.00-0.10); BASOPHILS PERCENT AUTO 0.2 % (0.0-1.0); EOSINOPHILS ABSOLUTE AUTO 0.65 10^3/uL (0.10-0.30); EOSINOPHILS PERCENT AUTO 13.9 % (1.0-3.0); HEMOGLOBIN 11.7 g/dL (13.0-17.0); IMMATURE GRAN ABSOLUTE AUTO 0.06 10^3/uL (0.00-0.50); IMMATURE GRAN PERCENT AUTO 1.3 % (0.0-5.0); LYMPHOCYTES ABSOLUTE AUTO 0.84 10^3/uL (1.00-4.00); MEAN CORPUSCULAR HEMOGLOBIN 29.5 pg (27.0-31.0); MEAN CORPUSCULAR HGB CONC 32.5 g/dL (32.0-36.0); MEAN CORPUSCULAR VOLUME 90.9 fL (82.0-92.0); MEAN PLATELET VOLUME 8.9 fL (7.4-10.4); MONOCYTES ABSOLUTE AUTO 0.51 10^3/uL (0.10-0.80); MONOCYTES PERCENT AUTO 10.9 % (2.0-8.0); NEUTROPHILS PERCENT AUTO 55.7 % (50.0-70.0); PLATELET COUNT,PLT 234 10^3/uL (150-400); RED BLOOD CELL COUNT 3.96 10^6/uL (4.50-6.00); RED CELL DISTRIBUTION WIDTH 15.7 % (11.5-14.5); WHITE BLOOD CELL COUNT,WBC 4.67 10^3/uL (5.00-10.00)
[2023-10-24 07:25] LABS: ALBUMIN 2.4 g/dL (3.40-5.00); ANION GAP 10.9 mmol/L (5-15); BILIRUBIN TOTAL 0.3 mg/dL (0.2-1.0); CALCIUM 9.1 mg/dL (8.7-10.3); CARBON DIOXIDE,CO2 32.2 mmol/L (21.0-32.0); CREATININE 1.1 mg/dL (0.51-1.17); EST CRCL DRUG DOSING (CG) 44.97 mL/min; POTASSIUM,K 4.1 mmol/L (3.5-5.1); PROTEIN TOTAL,TP 7.2 g/dL (6.4-8.2)
[2023-10-24 07:35] LABS: INR 1.7 (0.9-1.1); PROTHROMBIN TIME 17.7 SEC (9.3-12.2)
[2023-10-24] MEDS: Furosemide 40 MG Tab PO SCH (14:01)
[2023-10-24] MEDS: Amoxicillin/Clavulanate K 400-57 MG/5 ML Susp 100 ML Bottle PO SCH (14:01)
[2023-10-24] MEDS: Warfarin 5 MG Tab PO ONE (18:07)
[2023-10-24] MEDS: Warfarin 2.5 MG Tab PO ONE (18:07)
[2023-10-25 08:28] LABS: HEMATOCRIT 36.6 % (40.0-52.0); HEMOGLOBIN 11.7 g/dL (13.0-17.0); MEAN CORPUSCULAR VOLUME 90.6 fL (82.0-92.0); MEAN PLATELET VOLUME 9.3 fL (7.4-10.4); PLATELET COUNT,PLT 267 10^3/uL (150-400); RED BLOOD CELL COUNT 4.04 10^6/uL (4.50-6.00); RED CELL DISTRIBUTION WIDTH 15.6 % (11.5-14.5); WHITE BLOOD CELL COUNT,WBC 4.87 10^3/uL (5.00-10.00)
[2023-10-25 08:50] LABS: INR 1.6 (0.9-1.1)
[2023-10-25 08:58] LABS: ALBUMIN 2.5 g/dL (3.40-5.00); ANION GAP 12.2 mmol/L (5-15); BILIRUBIN TOTAL 0.4 mg/dL (0.2-1.0); CALCIUM 9.2 mg/dL (8.7-10.3); CARBON DIOXIDE,CO2 31.7 mmol/L (21.0-32.0); CREATININE 1.16 mg/dL (0.51-1.17); EST CRCL DRUG DOSING (CG) 42.64 mL/min; POTASSIUM,K 3.9 mmol/L (3.5-5.1); PROTEIN TOTAL,TP 7.3 g/dL (6.4-8.2)
[2023-10-25 09:47] LABS: PROTHROMBIN TIME 17.1 SEC (9.3-12.2)
[2023-10-25 10:01] LABS: SLIDE REVIEW NO
[2023-10-25 10:02] LABS: BAND PERCENT MAN 2 % (4-12); BASOPHILS PERCENT MAN 0 % (0-1); EOSINOPHILS PERCENT MAN 12 % (1-3); LYMPHOCYTES PERCENT MAN 11 % (20-40); MONOCYTES PERCENT MAN 7 % (2-8); SEG NEUTROPHILS PERCENT MAN 68 % (50-70)
[2023-10-25] MEDS ORDERED: 50% Dextrose in Water 50 ML Syringe IVPUSH PRN (12:18)
[2023-10-25] MEDS ORDERED: Glucagon,Human Recombinant 1 MG Vial IM PRN (12:18)
[2023-10-25] MEDS: Insulin Lispro 100 Unit/ML 3 ML KwikPen SUBCUT SCH (18:03)
[2023-10-25] MEDS ORDERED: PEG 400/Hypromellose/Glycerin 15 ML Bottle EYEBOTH PRN (18:19)
[2023-10-26 08:08] LABS: HEMATOCRIT 36.5 % (40.0-52.0); HEMOGLOBIN 11.7 g/dL (13.0-17.0); MEAN CORPUSCULAR HEMOGLOBIN 29.2 pg (27.0-31.0); MEAN CORPUSCULAR HGB CONC 32.1 g/dL (32.0-36.0); MEAN PLATELET VOLUME 9.1 fL (7.4-10.4); PLATELET COUNT,PLT 282 10^3/uL (150-400); RED BLOOD CELL COUNT 4.01 10^6/uL (4.50-6.00); RED CELL DISTRIBUTION WIDTH 15.6 % (11.5-14.5)
[2023-10-26 08:33] LABS: INR 1.5 (0.9-1.1)
[2023-10-26 08:40] LABS: ALANINE AMINOTRANSFERASE,ALT 18 U/L (14-63); ALBUMIN 2.56 g/dL (3.40-5.00); ALKALINE PHOSPHATASE 87 U/L (46-116); ANION GAP 10.6 mmol/L (5-15); BILIRUBIN TOTAL 0.4 mg/dL (0.2-1.0); BLOOD UREA NITROGEN,BUN 27 mg/dL (7-18); CARBON DIOXIDE,CO2 34.3 mmol/L (21.0-32.0); CHLORIDE,CL 100 mmol/L (98-107); CREATININE 1.22 mg/dL (0.51-1.17); EST CRCL DRUG DOSING (CG) 40.55 mL/min; GLUCOSE RANDOM 147 mg/dL (70-140); POTASSIUM,K 3.9 mmol/L (3.5-5.1); PROTEIN TOTAL,TP 7.4 g/dL (6.4-8.2); SODIUM,NA 141 mmol/L (136-145)
[2023-10-26 08:47] LABS: ESTIMATED GFR 59 mL/min (>=60)
[2023-10-26 08:48] LABS: ASPARTATE AMNIOTRANSFERASE,AST < 9 U/L (15-37)
[2023-10-26 08:51] LABS: BAND PERCENT MAN 0 % (4-12); SEG NEUTROPHILS PERCENT MAN 65 % (50-70)
[2023-10-26 08:52] LABS: BASOPHILS PERCENT MAN 0 % (0-1); EOSINOPHILS PERCENT MAN 17 % (1-3); LYMPHOCYTES PERCENT MAN 15 % (20-40); MONOCYTES PERCENT MAN 3 % (2-8)
[2023-10-26] MEDS: Furosemide 40 MG Tab PO ONE (09:19)
[2023-10-26 10:23] LABS: CALCIUM 9.2 mg/dL (8.7-10.3)
[2023-10-26 11:16] VITALS: BP 118/59; PULSE 58
[2023-10-28 15:17] LABS: PLATELET COUNT ESTIMATE ADEQUATE; SLIDE REVIEW YES
[2023-10-28 15:19] LABS: LYMPHOCYTES PERCENT MAN 17 % (20-40); SEG NEUTROPHILS PERCENT MAN 62 % (50-70)
[2023-10-28 15:20] LABS: BASOPHILS PERCENT MAN 1 % (0-1); EOSINOPHILS PERCENT MAN 10 % (1-3); MONOCYTES PERCENT MAN 10 % (2-8); PLATELET CLUMPS NOT SEEN
[2023-10-29 09:06] LABS: BAND PERCENT MAN 0 % (4-12); BASOPHILS PERCENT MAN 0 % (0-1); EOSINOPHILS PERCENT MAN 14 % (1-3); LYMPHOCYTES PERCENT MAN 12 % (20-40); MONOCYTES PERCENT MAN 8 % (2-8); SEG NEUTROPHILS PERCENT MAN 66 % (50-70)
== END 2023-10-26 09:34 | disposition home or self-care (01) | DRG 177 ==
LOC: KA.ED 16:34 → KA.MS 19:20
PROVIDERS: ADMIT Internal Medicine; ATTEND Internal Medicine
DX: J18.9 Pneumonia, unspecified organism (principal); R09.02 Hypoxemia; R74.02 Elevation of levels of lactic acid dehydrogenase [LDH]; J69.0 Pneumonitis due to inhalation of food and vomit; I50.33 Acute on chronic diastolic (congestive) heart failure; I10 Essential (primary) hypertension; J96.01 Acute respiratory failure with hypoxia; E87.21 Acute metabolic acidosis; E11.9 Type 2 diabetes mellitus without complications; N17.9 Acute kidney failure, unspecified; H91.90 Unspecified hearing loss, unspecified ear; H54.7 Unspecified visual loss; I25.10 Atherosclerotic heart disease of native coronary artery without angina pectoris; E78.00 Pure hypercholesterolemia, unspecified; K59.09 Other constipation; M19.90 Unspecified osteoarthritis, unspecified site; F32.A Depression, unspecified; E66.9 Obesity, unspecified; Z96.659 Presence of unspecified artificial knee joint; G40.909 Epilepsy, unspecified, not intractable, without status epilepticus; I11.0 Hypertensive heart disease with heart failure; E11.65 Type 2 diabetes mellitus with hyperglycemia; Z79.82 Long term (current) use of aspirin; Z79.899 Other long term (current) drug therapy; Z79.84 Long term (current) use of oral hypoglycemic drugs; Z79.01 Long term (current) use of anticoagulants; I25.2 Old myocardial infarction; Z95.5 Presence of coronary angioplasty implant and graft; Z86.73 Personal history of transient ischemic attack (TIA), and cerebral infarction without residual deficits; Z68.36 Body mass index [BMI] 36.0-36.9, adult; Z95.1 Presence of aortocoronary bypass graft; Z86.718 Personal history of other venous thrombosis and embolism
CPT/HCPCS: 0241U; 36415; 71045; 71275; 80048; 80053; 82947; 83605; 83880; 84484; 85025; 85379; 85610; 85730; 87040; 87070; 87205; 93005; 93010; 96361; 96374; 99223-GT; 99232-GT; 99233-GT; 99239-GT; 99284; 99285-25; A9270-GY; J0692; J1815-GY; J1940; J3490; J7030; Q3014; Q9967